=== PATIENT | male | born 2000 | race Two or more races ===

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

== ENCOUNTER 2019-06-09 11:53 | Emergency (ER) | payer BC ==
--- NOTE | 2019-06-09 11:55 | EDM.PDOC ---
ED HPI GENERAL MEDICAL PROBLEM - General Chief Complaint: Chest Pain Stated Complaint: PT FELL AND HIT HEAD, CHEST PAIN Time Seen by Provider: 06/09/19 11:55 Source of Information: Reports: Patient - History of Present Illness INITIAL COMMENTS - FREE TEXT/NARRATIVE: HISTORY AND PHYSICAL: History of present illness: [Patient was intoxicated last night he states he fell down a flight of 20 stairs last night at 3 AM, he has obvious left eye contusion and complains of left rib and left upper quadrant pain no fever nausea vomiting chills sweats no chest pain shortness breath headache dizziness palpitation no bowel or urine symptoms] Review of systems: As per history of present illness and below otherwise all systems reviewed and negative. Past medical history: As per history of present illness and as reviewed below otherwise noncontributory. Surgical history: As per history of present illness and as reviewed below otherwise noncontributory. Social history: No reported history of drug or alcohol abuse. Family history: As per history of present illness and as reviewed below otherwise noncontributory. Physical exam: HEENT: Atraumatic, normocephalic, pupils reactive, negative for conjunctival pallor or scleral icterus, mucous membranes moist, throat clear, neck supple, nontender, trachea midline. Left raccoon 9 noted Lungs: Clear to auscultation, breath sounds equal bilaterally, chest nontender. Heart: S1S2, regular, negative for clicks, rubs, or JVD. Abdomen: Soft, nondistended, nontender. Negative for masses or hepatosplenomegaly. Negative for costovertebral tenderness. Pelvis: Stable nontender. Genitourinary: Deferred. Rectal: Deferred. Extremities: Atraumatic, negative for cords or calf pain. Neurovascular unremarkable. Neuro: Awake, alert, oriented. Cranial nerves II through XII unremarkable. Cerebellum unremarkable. Motor and sensory unremarkable throughout. Exam nonfocal. Diagnostics: Head and cervical spine CT no contrast Chest abdomen pelvis with contrast EKG ] CBC CMP UA etoh Therapeutics: [Rest ice ibuprofen ] Impression: [Contusion left eye Fall Medical screening exam] Definitive disposition and diagnosis as appropriate pending reevaluation and review of above. Chest Pain Score (Numeric/FACES): 3 - Related Data Allergies Allergy/AdvReac Type Severity Reaction Status Date / Time No Known Allergies Allergy Verified 06/09/19 12:27 Home Meds: Home Meds . [No Known Home Meds] 12/15/17 [History] Past Medical History - Past Health History Medical/Surgical History: Denies Medical/Surgical History Cardiovascular History: Reports: Other (See Below) Other Cardiovascular History: pericarditis Respiratory History: Reports: None Gastrointestinal History: Reports: None Genitourinary History: Reports: None Musculoskeletal History: Reports: None Neurological History: Reports: None Psychiatric History: Reports: ADHD, Anxiety Endocrine/Metabolic History: Reports: None Hematologic History: Reports: None Immunologic History: Reports: None Oncologic (Cancer) History: Reports: None Dermatologic History: Reports: None - Infectious Disease History Infectious Disease History: Reports: None - Past Surgical History HEENT Surgical History: Reports: Eye Surgery Social & Family History - Family History Family Medical History: Noncontributory ED ROS GENERAL - Review of Systems Review Of Systems: See Below ED EXAM, GENERAL - Physical Exam Exam: See Below Course - Vital Signs Last Recorded V/S: Last Vital Signs Temp 97.8 F 06/09/19 11:58 Pulse 116 H 06/09/19 11:58 Resp 14 06/09/19 11:58 BP 143/84 H 06/09/19 11:58 Pulse Ox 98 06/09/19 11:58 - Orders/Labs/Meds Orders: Active Orders 24 hr Category Date Time Status Admission Status [Patient Status] [ADT] Stat ADT 06/09/19 13:03 Active EKG Documentation Completion [RC] STAT Care 06/09/19 11:55 Active Vaccines to be Administered [RC] PER UNIT ROUTINE Care 06/09/19 12:02 Active UA RFX LAURA AND CULT IF INDIC [URIN] Stat Lab 06/09/19 12:03 Ordered Labs: Laboratory Tests 06/09/19 06/09/19 Range/Units 12:03 12:03 WBC 15.93 H (4.0-11.0) K/uL RBC 5.72 (4.50-5.90) M/uL Hgb 15.5 (13.0-17.0) g/dL Hct 47.1 (38.0-50.0) % MCV 82.3 (80.0-98.0) fL MCH 27.1 (27.0-32.0) pg MCHC 32.9 (31.0-37.0) g/dL RDW Std Deviation 42.8 (28.0-62.0) fl RDW Coeff of Misti 14 (11.0-15.0) % Plt Count 232 (150-400) K/uL MPV 12.10 H (7.40-12.00) fL Neut % (Auto) 76.9 (48.0-80.0) % Lymph % (Auto) 16.9 (16.0-40.0) % [place] % (Auto) 6.0 (0.0-15.0) % Eos % (Auto) 0.0 (0.0-7.0) % Baso % (Auto) 0.2 (0.0-1.5) % Neut # (Auto) 12.3 H (1.4-5.7) K/uL Lymph # (Auto) 2.7 H (0.6-2.4) K/uL [place] # (Auto) 1.0 H (0.0-0.8) K/uL Eos # (Auto) 0.0 (0.0-0.7) K/uL Baso # (Auto) 0.0 (0.0-0.1) K/uL Nucleated RBC % 0.0 /100WBC Nucleated RBCs # 0 K/uL Sodium 142 (136-148) mmol/L Potassium 3.2 L (3.5-5.1) mmol/L Chloride 103 (98-107) mmol/L Carbon Dioxide 22.3 (21.0-32.0) mmol/L BUN 10 (7.0-18.0) mg/dL Creatinine 1.0 (0.8-1.3) mg/dL Est Cr Clr Drug Dosing 121.67 mL/min Estimated GFR (MDRD) > 60.0 ml/min Glucose 93 (74-106) mg/dL Calcium 10.0 (8.5-10.1) mg/dL Total Bilirubin 0.5 (0.2-1.0) mg/dL AST 17 (15-37) IU/L ALT 22 (14-63) IU/L Alkaline Phosphatase 136 H (46-116) U/L Total Protein 8.2 (6.4-8.2) g/dL Albumin 4.6 (3.4-5.0) g/dL Globulin 3.6 (2.6-4.0) g/dL Albumin/Globulin Ratio 1.3 (0.9-1.6) Ethyl Alcohol 36 mg/dL Meds: Medications Discontinued Medications Generic Name Dose Route Start Last Admin Trade Name Lou PRN Reason Stop Dose Admin Diphtheria/Tetanus/Acell Pertussis 0.5 ml 06/09/19 12:02 06/09/19 12:53 Adacel IM 06/09/19 12:03 0.5 ml .ONCE ONE Administration Iopamidol 100 ml 06/09/19 12:22 06/09/19 12:24 Isovue-370 (76%) IVPUSH 06/09/19 12:23 100 ml ONETIME STA Administration Departure - Departure Time of Disposition: 13:19 Disposition: Home, Self-Care 01 Condition: Good Clinical Impression: Contusion - Discharge Information Forms: ED Department Discharge Additional Instructions: The following information is given to patients seen in the emergency department who are being discharged to home. This information is to outline your options for follow-up care. We provide all patients seen in our emergency department with a follow-up referral. The need for follow-up, as well as the timing and circumstances, are variable depending upon the specifics of your emergency department visit. If you don't have a primary care physician on staff, we will provide you with a referral. We always advise you to contact your personal physician following an emergency department visit to inform them of the circumstance of the visit and for follow-up with them and/or the need for any referrals to a consulting specialist. The emergency department will also refer you to a specialist when appropriate. This referral assures that you have the opportunity for follow-up care with a specialist. All of these measure are taken in an effort to provide you with optimal care, which includes your follow-up. Under all circumstances we always encourage you to contact your private physician who remains a resource for coordinating your care. When calling for follow-up care, please make the office aware that this follow-up is from your recent emergency room visit. If for any reason you are refused follow-up, please contact the [facility] emergency department at and asked to speak to the emergency department charge nurse. - My Orders Last 24 Hours: My Active Orders 06/09/19 11:55 EKG Documentation Completion [RC] STAT 06/09/19 12:02 Vaccines to be Administered [RC] PER UNIT ROUTINE 06/09/19 12:03 UA RFX LAURA AND CULT IF INDIC [URIN] Stat 06/09/19 13:03 Admission Status [Patient Status] [ADT] Stat - Assessment/Plan Last 24 Hours: My Active Orders 06/09/19 11:55 EKG Documentation Completion [RC] STAT 06/09/19 12:02 Vaccines to be Administered [RC] PER UNIT ROUTINE 06/09/19 12:03 UA RFX LAURA AND CULT IF INDIC [URIN] Stat 06/09/19 13:03 Admission Status [Patient Status] [ADT] Stat
[2019-06-09] MEDS ORDERED: Diphtheria,Pertussis(Acell),Tetanus Vaccine 0.5 ML Syringe IM ONE (12:02)
[2019-06-09] MEDS ORDERED: Iopamidol 755 Mg/ML 100 ML Bottle IVPUSH STA (12:22)
[2019-06-09 12:39] LABS: BLOOD UREA NITROGEN,BUN 10 mg/dL (7.0-18.0); CARBON DIOXIDE,CO2 22.3 mmol/L (21.0-32.0); CHLORIDE,CL 103 mmol/L (98-107); GLUCOSE RANDOM 93 mg/dL (74-106); POTASSIUM,K 3.2 mmol/L (3.5-5.1); SODIUM,NA 142 mmol/L (136-148)
--- NOTE | 2019-06-09 12:47 | CT ---
EXAMINATION: Non contrast CT head. Coronal and sagittal reformats. HISTORY: Pain FINDINGS: No evidence of intra or extra axial hemorrhage, mass, midline shift, hydrocephalus or edema. No hypoattenuation changes in the major vascular territories to suggest acute infarct. No abnormal intracranial calcifications are detected. No evidence of substantial vascular calcifications. Paranasal sinuses and mastoid air cells are well aerated without substantial findings. Pituitary fossa appears unremarkable. Orbits and globes are symmetric. Calvarium is intact. No evidence of skull fracture. IMPRESSION: No acute intracranial findings.
--- NOTE | 2019-06-09 12:49 | CT ---
EXAMINATION: CT cervical spine HISTORY: Pain COMPARISON: None TECHNIQUE: Axial CT imaging obtained through the cervical spine without contrast. Coronal and sagittal reconstructions obtained. FINDINGS: The cervical spinal alignment is normal. Vertebral body heights and disc spaces appear well-maintained. There is no fracture or acute osseous abnormality. Bone mineralization and joint spaces are preserved. Paravertebral soft tissues appear normal. Lung apices are clear. IMPRESSION: 1. No acute cervical abnormality.
--- NOTE | 2019-06-09 12:54 | CT ---
CT of the chest, abdomen and pelvis with contrast. HISTORY: Pain TECHNIQUE: Axial CT images were obtained of the chest, abdomen and pelvis following administration of 100 mL of Isovue-370 in the right antecubital fossa without complication. Coronal and sagittal reconstructions obtained. FINDINGS: Chest: The lungs are clear without focal consolidation. No pleural effusion or pneumothorax. The heart is normal in size without a pericardial effusion. Thoracic aorta is normal in caliber. The main and central pulmonary arteries appear patent. Central airways are clear. No mediastinal, hilar, or axillary lymphadenopathy. Abdomen: The liver, spleen, adrenal glands, and pancreas appear normal. The gallbladder is normal. There is no bulky retroperitoneal lymphadenopathy or abdominal ascites. The kidneys enhance and function symmetrically without evidence of obstructive uropathy. Pelvis: The large and small bowel are normal in caliber without evidence of obstruction. No focal pericolonic inflammation or stranding. The appendix is normal. No bulky pelvic lymphadenopathy or free pelvic fluid. Urinary bladder is minimally filled. No suspicious osseous abnormalities identified. IMPRESSION: 1. No acute findings noted within the chest, abdomen, or pelvis.
[2019-06-09 17:17] VITALS: BP 134/75; PULSE 95
== END 2019-06-09 13:35 | disposition home or self-care (01) ==
LOC: MW.ED 11:53
DX: S05.12XA Contusion of eyeball and orbital tissues, left eye, initial encounter (principal); R10.12 Left upper quadrant pain; R07.81 Pleurodynia; Z23 Encounter for immunization; W10.8XXA Fall (on) (from) other stairs and steps, initial encounter
CPT/HCPCS: 36415; 70450; 71260; 72125; 74177; 80053; 81003; 85025; 90471; 90715; 93005; 99285; G0480; Q9967; 99284

== ENCOUNTER 2020-06-26 18:22 | Emergency (ER) | payer BC, OTHER ==
[2020-06-26] MEDS ORDERED: Acetaminophen 500 MG Tab PO ONE (18:33)
[2020-06-26] MEDS ORDERED: Ibuprofen 600 MG Tab PO ONE (18:35)
--- NOTE | 2020-06-26 18:39 | EDM.PDOC ---
<Huseyin Esquivel - Last Filed: 06/27/20 01:30> ED HPI GENERAL MEDICAL PROBLEM - General Chief Complaint: Chest Pain Stated Complaint: CHEST PAIN,TROUBLE BREATHING Time Seen by Provider: 06/26/20 18:28 - Related Data Allergies Allergy/AdvReac Type Severity Reaction Status Date / Time No Known Allergies Allergy Verified 06/26/20 18:28 Home Meds: Home Meds . [No Known Home Meds] 12/15/17 [History] Course - Vital Signs Text/Narrative:: Troponin negative, remainder the labs are largely unremarkable, chest x-ray was clear, stable vital signs, no acute distress. Patient states he feels better after getting Tylenol and Motrin. COVID swab was sent off. Encouraged the patient to isolate himself at home until results are known and that he would be notified about the results of the test. Patient understands this plan, is agreeable with it, has a reassuring work-up here, no indication for admission or further work-up at this time. Return precautions provided otherwise he was stable at discharge. Departure - Departure Time of Disposition: 19:50 Disposition: Home, Self-Care 01 Condition: Good Clinical Impression: Atypical chest pain - Discharge Information Instructions: Chest Wall Pain, [id number] Referrals: PCP,None [Primary Care Provider] - Forms: ED Department Discharge Additional Instructions: Follow-up with your primary care doctor. Use [id number] pain medicine as needed and directed for pain control. Return to the ED with any new or worsening symptoms. Isolate yourself at home until the results of the covid test are known. The following information is given to patients seen in the emergency department who are being discharged to home. This information is to outline your options for follow-up care. We provide all patients seen in our emergency department with a follow-up referral. The need for follow-up, as well as the timing and circumstances, are variable depending upon the specifics of your emergency department visit. If you don't have a primary care physician on staff, we will provide you with a referral. We always advise you to contact your personal physician following an emergency department visit to inform them of the circumstance of the visit and for follow-up with them and/or the need for any referrals to a consulting specialist. The emergency department will also refer you to a specialist when appropriate. This referral assures that you have the opportunity for follow-up care with a specialist. All of these measure are taken in an effort to provide you with optimal care, which includes your follow-up. Under all circumstances we always encourage you to contact your private physician who remains a resource for coordinating your care. When calling for follow-up care, please make the office aware that this follow-up is from your recent emergency room visit. If for any reason you are refused follow-up, please contact the [facility] Emergency Department at and asked to speak to the emergency department charge nurse. <Gavin Garcia - Last Filed: 06/27/20 06:58> ED HPI GENERAL MEDICAL PROBLEM - General Source of Information: Reports: Patient History Limitations: Reports: No Limitations - History of Present Illness INITIAL COMMENTS - FREE TEXT/NARRATIVE: 20M PMHx pericarditis presents for chest pain and subjective fever. Noted the past couple of days feeling subjectively febrile with body aches, chills, sweats. Has had nausea without vomiting. Notes cramping to b/l legs. Notes generalized weakness. Today was playing basketball and noted anterior chest tightness and shortness of breath. No known sick contacts. Chest pain feels kind of like when he has had pericarditis. Chest Pain Score (Numeric/FACES): 3 Past Medical History - Past Health History Medical/Surgical History: Denies Medical/Surgical History Cardiovascular History: Reports: Other (See Below) Other Cardiovascular History: pericarditis Respiratory History: Reports: None Gastrointestinal History: Reports: None Genitourinary History: Reports: None Musculoskeletal History: Reports: None Neurological History: Reports: None Psychiatric History: Reports: ADHD, Anxiety Endocrine/Metabolic History: Reports: None Hematologic History: Reports: None Immunologic History: Reports: None Oncologic (Cancer) History: Reports: None Dermatologic History: Reports: None - Infectious Disease History Infectious Disease History: Reports: None - Past Surgical History Head Surgeries/Procedures: Reports: None HEENT Surgical History: Reports: Eye Surgery Social & Family History - Family History Family Medical History: Noncontributory - Caffeine Use Caffeine Use: Reports: Coffee - Recreational Drug Use Recreational Drug Use: No ED ROS GENERAL - Review of Systems Review Of Systems: Comprehensive ROS is negative, except as noted in HPI. ED EXAM, GENERAL - Physical Exam Exam: See Below Exam Limited By: No Limitations General Appearance: Alert, WD/WN, No Apparent Distress Head: Atraumatic, Normocephalic Respiratory/Chest: No Respiratory Distress, Lungs Clear, Normal Breath Sounds, No Accessory Muscle Use Cardiovascular: Normal Peripheral Pulses, Regular Rate, Rhythm, No Edema Extremities: Normal Inspection, Other (LE symmetric without warmth, erythema, or TTP) Neurological: Alert Psychiatric: Normal Affect, Normal Mood Skin Exam: Warm, Dry EKG INTERPRETATION EKG Date: 06/26/20 Time: 18:39 Rhythm: NSR Rate (Beats/Min): 76 [place]: Normal P-Wave: Present QRS: Normal ST-T: Other (benign early repolarization pattern) QT: Normal IA/PQ Interval: 156 Course - Vital Signs Last Recorded V/S: Last Vital Signs Temp 97.2 F 06/26/20 19:49 Pulse 82 06/26/20 19:49 Resp 18 06/26/20 19:49 BP 127/77 06/26/20 19:49 Pulse Ox 98 06/26/20 19:49 - Orders/Labs/Meds Orders: Active Orders 24 hr Category Date Time Status Discharge Patient [ADT] Routine ADT 06/26/20 19:39 Ordered Labs: Laboratory Tests 06/26/20 06/26/20 06/26/20 Range/Units 18:53 18:53 19:05 WBC 10.02 (4.0-11.0) K/uL RBC 5.47 (4.50-5.90) M/uL Hgb 14.7 (13.0-17.0) g/dL Hct 45.2 (38.0-50.0) % MCV 82.6 (80.0-98.0) fL MCH 26.9 L (27.0-32.0) pg MCHC 32.5 (31.0-37.0) g/dL RDW Std Deviation 42.6 (28.0-62.0) fl RDW Coeff of Misti 14 (11.0-15.0) % Plt Count 175 (150-400) K/uL MPV 12.10 H (7.40-12.00) fL Neut % (Auto) 69.3 (48.0-80.0) % Lymph % (Auto) 22.5 (16.0-40.0) % [place] % (Auto) 6.8 (0.0-15.0) % Eos % (Auto) 1.0 (0.0-7.0) % Baso % (Auto) 0.4 (0.0-1.5) % Neut # (Auto) 7.0 H (1.4-5.7) K/uL Lymph # (Auto) 2.3 (0.6-2.4) K/uL [place] # (Auto) 0.7 (0.0-0.8) K/uL Eos # (Auto) 0.1 (0.0-0.7) K/uL Baso # (Auto) 0.0 (0.0-0.1) K/uL Nucleated RBC % 0.0 /100WBC Nucleated RBCs # 0 K/uL Sodium 137 (136-148) mmol/L Potassium 3.3 L (3.5-5.1) mmol/L Chloride 101 (98-107) mmol/L Carbon Dioxide 25.3 (21.0-32.0) mmol/L BUN 15 (7.0-18.0) mg/dL Creatinine 1.1 (0.8-1.3) mg/dL Est Cr Clr Drug Dosing 109.68 mL/min Estimated GFR (MDRD) > 60.0 ml/min Glucose 130 H (74-106) mg/dL Calcium 8.6 (8.5-10.1) mg/dL Troponin I < 0.050 (0.000-0.056) ng/mL COVID-19 (JENNIFER) NEGATIVE (NEGATIVE) Meds: Medications Discontinued Medications Generic Name Dose Route Start Last Admin Trade Name Julio Cq PRN Reason Stop Dose Admin Acetaminophen 1,000 mg 06/26/20 18:33 06/26/20 19:07 Tylenol Extra Strength PO 06/26/20 18:34 1,000 mg ONETIME ONE Administration Ibuprofen 600 mg 06/26/20 18:35 06/26/20 19:07 Motrin PO 06/26/20 18:36 600 mg ONETIME ONE Administration - Re-Assessments/Exams Free Text/Narrative Re-Assessment/Exam: 06/26/20 18:37 Patient presents with multiple symptoms. EKG without acute findings. Will get CXR and basic labs. Will get COVID-19 testing. Will treat symptomatically with motrin/tylenol. Will transition care to night-team ED physician pending labs, imaging, and reassessment. 06/26/20 18:49 Wet read CXR negative for acute pathology Sepsis Event Note (ED) - Evaluation Sepsis Screening Result: No Definite Risk - Focused Exam Vital Signs: Vital Signs Temp Pulse Resp BP Pulse Ox 06/26/20 19:49 97.2 F 82 18 127/77 98
--- NOTE | 2020-06-26 19:00 | CR ---
Chest: Frontal view of the chest was obtained. Comparison: No prior chest imaging is available. Heart size and mediastinum are normal. Lungs are clear. Bony structures show nothing acute. Impression: 1. Nothing acute is seen on frontal chest x-ray. Diagnostic code #1 This report was dictated in MDT
[2020-06-26 19:25] LABS: BLOOD UREA NITROGEN,BUN 15 mg/dL (7.0-18.0); CARBON DIOXIDE,CO2 25.3 mmol/L (21.0-32.0); CHLORIDE,CL 101 mmol/L (98-107); GLUCOSE RANDOM 130 mg/dL (74-106); POTASSIUM,K 3.3 mmol/L (3.5-5.1); SODIUM,NA 137 mmol/L (136-148)
[2020-06-26 19:50] VITALS: BP 127/77; PULSE 82
== END 2020-06-26 19:50 | disposition home or self-care (01) ==
LOC: MW.ED 18:22
DX: R07.89 Other chest pain (principal); Z20.828 Contact with and (suspected) exposure to other viral communicable diseases
CPT/HCPCS: 36415; 71045; 80048; 84484; 85025; 87635; 93005; 99285; A9270; 99282; U0002

== ENCOUNTER 2020-07-02 21:23 | Emergency (ER) | payer BC, OTHER ==
[2020-07-02] MEDS ORDERED: Famotidine 20 MG/2 ML SDV IVPUSH ONE (22:00)
[2020-07-02] MEDS ORDERED: Sodium Chloride 0.9% 10 ML Syringe FLUSH PRN (22:00)
[2020-07-02] MEDS ORDERED: Sodium Chloride 0.9% 1,000 ML IV ONE (22:00)
[2020-07-02] MEDS ORDERED: Ondansetron 4 MG/2 ML SDV IVPUSH ONE (22:00)
[2020-07-02] MEDS ORDERED: Sodium Chloride 0.9% 2.5 ML Syringe FLUSH PRN (22:00)
--- NOTE | 2020-07-02 22:06 | EDM.PDOC ---
ED HPI GENERAL MEDICAL PROBLEM - General Chief Complaint: Abdominal Pain Stated Complaint: ABDOMINAL PAIN Time Seen by Provider: 07/02/20 21:35 Source of Information: Reports: Patient - History of Present Illness INITIAL COMMENTS - FREE TEXT/NARRATIVE: History of present illness: 20-year-old male presenting with diffuse abdominal pain, mostly in the upper abdominal/epigastric area and some in radiating to the back. He does report some chronic chest pain that he has daily and for which he has been seen many times in the emergency department but has never followed up outpatient and not currently having that at this time. No fever or chills. He does report some cough several days ago but no significant ongoing cough. Recently quit smoking 2 days ago. He does report that for his chronic chest pain he takes daily ibuprofen. He also reports that he had 2 shots of alcohol yesterday which is not normal for him. Review of systems: As per history of present illness and below otherwise all systems reviewed and negative. Past medical history: As per history of present illness and as reviewed below otherwise noncontributory. Surgical history: As per history of present illness and as reviewed below otherwise noncontributory. Eye surgery Social history: Quit cigarettes 2 weeks ago, occasional/rare alcohol use, occasional marijuana use Family history: As per history of present illness and as reviewed below otherwise noncontributory. Physical exam: GEN: no acute distress, well appearing HEENT: Atraumatic, normocephalic, mucous membranes moist, Neck: supple, nontender, trachea midline. Lungs: No respiratory distress. Heart: RRR Abdomen: Soft, nondistended, nontender. The patient has no reproducible tenderness in all 4 quadrants, epigastric area, or flank/CVA areas, no pulsatile mass. Back: nontender Extremities: Atraumatic. Neurovascularly intact. Neuro: Awake, alert, oriented. Neuro Exam nonfocal. Skin: warm, dry, no lesions Diagnostics: Labs, EKG, UA Therapeutics: IV fluids, Pepcid MDM: Impression: [] Plan: [] Definitive disposition and diagnosis as appropriate pending reevaluation and review of above. Generalized abdomen Pain Score (Numeric/FACES): 6 - Related Data Allergies Allergy/AdvReac Type Severity Reaction Status Date / Time No Known Allergies Allergy Verified 07/02/20 21:50 Home Meds: Home Meds Omeprazole 20 mg PO DAILY #30 tablet.dr 07/02/20 [Rx] Past Medical History - Past Health History Medical/Surgical History: Denies Medical/Surgical History Cardiovascular History: Reports: Other (See Below) Other Cardiovascular History: pericarditis Respiratory History: Reports: None Gastrointestinal History: Reports: None Genitourinary History: Reports: None Musculoskeletal History: Reports: None Neurological History: Reports: None Psychiatric History: Reports: ADHD, Anxiety Endocrine/Metabolic History: Reports: None Hematologic History: Reports: None Immunologic History: Reports: None Oncologic (Cancer) History: Reports: None Dermatologic History: Reports: None - Infectious Disease History Infectious Disease History: Reports: None - Past Surgical History Head Surgeries/Procedures: Reports: None HEENT Surgical History: Reports: Eye Surgery Social & Family History - Family History Family Medical History: Noncontributory - Caffeine Use Caffeine Use: Reports: Coffee - Recreational Drug Use Recreational Drug Type: Reports: Marijuana/Hashish ED ROS GENERAL - Review of Systems Review Of Systems: See Below (See HPI) ED EXAM, GI/ABD - Physical Exam Exam: See Below (See HPI) EKG INTERPRETATION EKG Interpretation Comments: EKG performed at 10:08 PM, sinus rhythm, rate 54, QTc 384, no acute ischemia, no STEMI. Independently interpreted by me. Course - Vital Signs Text/Narrative:: Abdominal pain and back pain. No significantly abnormal physical exam findings. In particular no pulsatile mass, no right upper quadrant tenderness, no right lower quadrant tenderness, no rebound or guarding, no fever, no respiratory distress or chest pain. Differential diagnosis includes pancreatitis, gastritis, gastric ulcer, nonspecific abdominal pain, etc. do not suspect cholecystitis, appendicitis, diverticulitis or other intra-abdominal infection Labs unremarkable, except for mildly elevated WBC count, lipase not elevated, patient feeling much better after Pepcid. EKG with no ischemia. Stable for discharge and outpatient follow-up. Last Recorded V/S: Last Vital Signs Temp 96.4 F L 07/02/20 21:36 Pulse 63 07/02/20 23:26 Resp 18 07/02/20 23:26 BP 115/69 07/02/20 23:26 Pulse Ox 98 07/02/20 23:26 - Orders/Labs/Meds Orders: Active Orders 24 hr Category Date Time Status EKG Documentation Completion [RC] STAT Care 07/02/20 22:00 Active Sodium Chloride 0.9% [Saline Flush] Med 07/02/20 22:00 Active 10 ml FLUSH ASDIRECTED PRN Sodium Chloride 0.9% [Saline Flush] Med 07/02/20 22:00 Active 2.5 ml FLUSH ASDIRECTED PRN Saline Lock Insert [OM.PC] Stat Oth 07/02/20 22:00 Ordered Medication Orders Sodium Chloride (Saline Flush) 10 ml FLUSH ASDIRECTED PRN PRN Reason: Keep Vein Open Sodium Chloride (Saline Flush) 2.5 ml FLUSH ASDIRECTED PRN PRN Reason: Keep Vein Open Labs: Laboratory Tests 07/02/20 07/02/20 07/02/20 Range/Units 22:00 22:00 22:00 WBC 11.48 H (4.0-11.0) K/uL RBC 5.69 (4.50-5.90) M/uL Hgb 15.1 (13.0-17.0) g/dL Hct 46.9 (38.0-50.0) % MCV 82.4 (80.0-98.0) fL MCH 26.5 L (27.0-32.0) pg MCHC 32.2 (31.0-37.0) g/dL RDW Std Deviation 42.0 (28.0-62.0) fl RDW Coeff of Misti 14 (11.0-15.0) % Plt Count 208 (150-400) K/uL MPV 12.20 H (7.40-12.00) fL Neut % (Auto) 64.3 (48.0-80.0) % Lymph % (Auto) 26.7 (16.0-40.0) % [place] % (Auto) 7.8 (0.0-15.0) % Eos % (Auto) 0.7 (0.0-7.0) % Baso % (Auto) 0.5 (0.0-1.5) % Neut # (Auto) 7.4 H (1.4-5.7) K/uL Lymph # (Auto) 3.1 H (0.6-2.4) K/uL [place] # (Auto) 0.9 H (0.0-0.8) K/uL Eos # (Auto) 0.1 (0.0-0.7) K/uL Baso # (Auto) 0.1 (0.0-0.1) K/uL Nucleated RBC % 0.0 /100WBC Nucleated RBCs # 0 K/uL Sodium 141 (136-148) mmol/L Potassium 3.7 (3.5-5.1) mmol/L Chloride 107 (98-107) mmol/L Carbon Dioxide 21.8 (21.0-32.0) mmol/L BUN 12 (7.0-18.0) mg/dL Creatinine 1.2 (0.8-1.3) mg/dL Est Cr Clr Drug Dosing 100.54 mL/min Estimated GFR (MDRD) > 60.0 ml/min Glucose 97 (74-106) mg/dL Calcium 9.0 (8.5-10.1) mg/dL Total Bilirubin 0.3 (0.2-1.0) mg/dL AST 16 (15-37) IU/L ALT 22 (14-63) IU/L Alkaline Phosphatase 131 H (46-116) U/L Total Protein 7.8 (6.4-8.2) g/dL Albumin 4.6 (3.4-5.0) g/dL Globulin 3.2 (2.6-4.0) g/dL Albumin/Globulin Ratio 1.4 (0.9-1.6) Lipase 145 (73-393) U/L Urine Color YELLOW Urine Appearance CLEAR Urine pH 5.5 (5.0-8.0) Ur Specific [place] >= 1.030 (1.001-1.035) Urine Protein NEGATIVE (NEGATIVE) mg/dL Urine Glucose (UA) NEGATIVE (NEGATIVE) mg/dL Urine Ketones NEGATIVE (NEGATIVE) mg/dL Urine Occult Blood NEGATIVE (NEGATIVE) Urine Nitrite NEGATIVE (NEGATIVE) Urine Bilirubin NEGATIVE (NEGATIVE) Urine Urobilinogen 0.2 (<2.0) EU/dL Ur Leukocyte Esterase NEGATIVE (NEGATIVE) Meds: Medications Generic Name Dose Route Start Last Admin Trade Name Freq PRN Reason Stop Dose Admin Sodium Chloride 10 ml 07/02/20 22:00 Saline Flush FLUSH ASDIRECTED PRN Keep Vein Open Sodium Chloride 2.5 ml 07/02/20 22:00 Saline Flush FLUSH ASDIRECTED PRN Keep Vein Open Discontinued Medications Generic Name Dose Route Start Last Admin Trade Name Freq PRN Reason Stop Dose Admin Famotidine 20 mg 07/02/20 22:00 07/02/20 22:27 Pepcid IVPUSH 07/02/20 22:01 20 mg ONETIME ONE Administration Sodium Chloride 1,000 mls @ 999 mls/hr 07/02/20 22:00 07/02/20 22:26 Normal Saline IV 07/02/20 23:00 999 mls/hr .Bolus ONE Administration Ondansetron HCl 4 mg 07/02/20 22:00 07/02/20 22:27 Zofran IVPUSH 07/02/20 22:01 4 mg ONETIME ONE Administration - Re-Assessments/Exams Free Text/Narrative Re-Assessment/Exam: 07/02/20 23:42 Patient pain-free at this time after Pepcid. Discussed results and plan of care with the patient. Discussed plan for outpatient primary care follow-up. Will start the patient on PPI. Departure - Departure Time of Disposition: 23:42 Disposition: Home, Self-Care 01 Clinical Impression: Chest pain Abdominal pain Qualifiers: Abdominal location: generalized Qualified Code(s): R10.84 - Generalized abdominal pain - Discharge Information Prescriptions: Omeprazole 20 mg PO DAILY #30 tablet.dr Instructions: Gastritis, Adult, [id number], Abdominal Pain, Adult, [id number], Nonspecific Chest Pain, Adult, [id number] Referrals: PCP,None [Primary Care Provider] - Forms: ED Department Discharge Additional Instructions: Follow-up with the primary care clinic listed below. Please start the omeprazole and do a 2-week course. Avoid any alcohol. Avoid ibuprofen and take only Tylenol as needed for pain. Return to the emergency department for new or worsening pain. The following information is given to patients seen in the emergency department who are being discharged to home. This information is to outline your options for follow-up care. We provide all patients seen in our emergency department with a follow-up referral. The need for follow-up, as well as the timing and circumstances, are variable depending upon the specifics of your emergency department visit. If you don't have a primary care physician on staff, we will provide you with a referral. We always advise you to contact your personal physician following an emergency department visit to inform them of the circumstance of the visit and for follow-up with them and/or the need for any referrals to a consulting specialist. The emergency department will also refer you to a specialist when appropriate. This referral assures that you have the opportunity for follow-up care with a specialist. All of these measure are taken in an effort to provide you with optimal care, which includes your follow-up. Under all circumstances we always encourage you to contact your private physician who remains a resource for coordinating your care. When calling for follow-up care, please make the office aware that this follow-up is from your recent emergency room visit. If for any reason you are refused follow-up, please contact the [facility] Emergency Department at and asked to speak to the emergency department charge nurse. [facility] [address] [place] [id number] [facility] [address] [place] [id number] Sepsis Event Note (ED) - Evaluation Sepsis Screening Result: No Definite Risk - Focused Exam Vital Signs: Vital Signs Temp Pulse Resp BP Pulse Ox 07/02/20 23:26 63 18 115/69 98 07/02/20 22:34 70 18 119/60 99 07/02/20 21:36 96.4 F L 73 20 144/86 H 96 - My Orders Last 24 Hours: My Active Orders 07/02/20 22:00 EKG Documentation Completion [RC] STAT Sodium Chloride 0.9% [Saline Flush] 10 ml FLUSH ASDIRECTED PRN Sodium Chloride 0.9% [Saline Flush] 2.5 ml FLUSH ASDIRECTED PRN Saline Lock Insert [OM.PC] Stat - Assessment/Plan Last 24 Hours: My Active Orders 07/02/20 22:00 EKG Documentation Completion [RC] STAT Sodium Chloride 0.9% [Saline Flush] 10 ml FLUSH ASDIRECTED PRN Sodium Chloride 0.9% [Saline Flush] 2.5 ml FLUSH ASDIRECTED PRN Saline Lock Insert [OM.PC] Stat
[2020-07-02 22:35] LABS: BLOOD UREA NITROGEN,BUN 12 mg/dL (7.0-18.0); CARBON DIOXIDE,CO2 21.8 mmol/L (21.0-32.0); CHLORIDE,CL 107 mmol/L (98-107); GLUCOSE RANDOM 97 mg/dL (74-106); LIPASE 145 U/L (73-393); POTASSIUM,K 3.7 mmol/L (3.5-5.1); SODIUM,NA 141 mmol/L (136-148)
[2020-07-03 00:15] VITALS: BP 117/60; PULSE 85
== END 2020-07-02 23:46 | disposition home or self-care (01) ==
LOC: MW.ED 21:23
DX: R10.84 Generalized abdominal pain (principal); R07.9 Chest pain, unspecified; Z79.899 Other long term (current) drug therapy
CPT/HCPCS: 36415; 80053; 81003; 83690; 85025; 93005; 96361; 96374; 96375; 99285; J2405; J3490; J7030; 99283

== ENCOUNTER 2020-07-29 19:59 | Emergency (ER) | payer BC ==
--- NOTE | 2020-07-29 20:09 | EDM.PDOC ---
ED HPI GENERAL MEDICAL PROBLEM - General Chief Complaint: Chest Pain Stated Complaint: CHEST PAIN, HEART RACING Time Seen by Provider: 07/29/20 20:05 Source of Information: Reports: Patient, Old Records - History of Present Illness INITIAL COMMENTS - FREE TEXT/NARRATIVE: 20-year-old male with a past medical history of pericarditis and GERD presenting with chest discomfort and palpitations. He reports a 1 day history of left- sided chest pain started around 8:00 this morning. Pain is intermittent, described as "pressure". At times he is totally pain-free. Episodes last for about 1 hour at a time. This current episode has been going on for about an hour. Nothing makes it better or worse, not changed with breathing or food intake. Denies any pleuritic type change in the pain. Denies any shortness of breath. He does report some intermittent nausea and palpitations but no diaphoresis or actual vomiting. No family history of premature CAD. No personal history of hypertension, hyperlipidemia, tobacco use, or diabetes mellitus. Denies recent fever or cough. No recent vomiting. No recent chest wall trauma. Patient denies history of venous thromboembolism, lower extremity pain or swelling, hemoptysis, recent surgery or immobilization or long travel, history of active malignancy, or hormonal medication/product usage. ROS: A 10-point review of systems was negative, except as noted in the HPI (or in the ROS section of this note). Past medical history: Reviewed, no additional pertinent history. Surgical history: Reviewed in system, no additional pertinent history. Social history: Reviewed in system, no additional pertinent history. Family history: Reviewed in system, no additional pertinent history. PHYSICAL EXAM Vital signs reviewed. Nursing notes reviewed. Constitutional: Awake, alert, non-distressed. Head: Normocephalic, atraumatic. Eyes: EOMI, conjunctiva normal, no discharge, no scleral icterus. Ears, Nose, Throat: External ears and nose normal, moist oral mucosa. Cardiovascular: 2+ radial pulse, capillary refill less than 2 seconds. RRR no MRG. No lower extremity edema. Pulmonary: normal work of breathing, no accessory muscle use. CTA BL. Abdomen/GI: Soft, nontender, nondistended, no guarding or rigidity, no masses. Musculoskeletal: No deformities. Integumentary: Appropriate color for ethnicity, warm, dry, no pallor or jaundice, no rash. Neurologic: Alert, answering questions appropriately, normal speech, no facial droop, moving all extremities well. No resting tremor. Psychiatric: Appropriate mood and affect, normal thought process. chest Pain Score (Numeric/FACES): 4 - Related Data Allergies Allergy/AdvReac Type Severity Reaction Status Date / Time No Known Allergies Allergy Verified 07/29/20 20:17 Home Meds: Home Meds . [No Known Home Meds] 07/29/20 [History] Past Medical History - Past Health History Medical/Surgical History: Denies Medical/Surgical History Cardiovascular History: Reports: Other (See Below) Other Cardiovascular History: pericarditis Respiratory History: Reports: None Gastrointestinal History: Reports: None Genitourinary History: Reports: None Musculoskeletal History: Reports: None Neurological History: Reports: None Psychiatric History: Reports: ADHD, Anxiety Endocrine/Metabolic History: Reports: None Hematologic History: Reports: None Immunologic History: Reports: None Oncologic (Cancer) History: Reports: None Dermatologic History: Reports: None - Infectious Disease History Infectious Disease History: Reports: None - Past Surgical History Head Surgeries/Procedures: Reports: None HEENT Surgical History: Reports: Eye Surgery Social & Family History - Family History Family Medical History: Noncontributory - Caffeine Use Caffeine Use: Reports: Coffee ED ROS GENERAL - Review of Systems Review Of Systems: See Below ED EXAM, GENERAL - Physical Exam Exam: See Below EKG INTERPRETATION EKG Interpretation Comments: 12-Lead ECG Interpretation Acquired: 8:25 PM Rhythm: Sinus rhythm Rate: 90 bpm [place]: Normal, borderline right axis deviation Intervals: Normal Ectopy: None Ischemic Changes: None apparent RV Strain: No obvious RV strain pattern. ST Segments/T-Waves: No notable changes Interpretation: Unremarkable Course - Vital Signs Text/Narrative:: 20-year-old male with 1 day history of intermittent chest pain and palpitations. Patient hemodynamically stable, afebrile, well-appearing, looks nontoxic. Differential diagnosis includes but is not limited to: ACS, pulmonary embolism, aortic dissection, acute systolic heart failure, pneumonia, pneumothorax, pericardial effusion, pleural effusion, pericarditis, endocarditis, esophageal rupture, GERD, drug-induced chest pain, chest wall pain, and many others. CBC shows normal cell lines. Electrolytes and renal function reassuring. Troponin testing negative. TSH within normal limits. Two-view chest x-ray series clear. Given 1 L of lactated Ringer's and full dose aspirin. Initial work-up is negative, but I recommended a repeat 3-hour troponin and ECG given that the patient's current episode of pain has only been going on for 1 to 2 hours. Patient was initially agreeable to staying to finish his work-up. However, he then advised nursing staff that he needed to leave the emergency department and was willing to sign out AGAINST MEDICAL ADVICE because he had to go home to deal with a crisis. I went to the room to evaluate him and told him that his work-up was not finished. I advised that he had pending lab work and we would potentially be missing a myocardial infarction, and that by leaving prior to the completion of his work-up he risks incomplete diagnostic picture and possible morbidity or even . He understands and accepts these risks. He signed the hospital AGAINST MEDICAL ADVICE discharge form witnessed by myself and the registered nurse. He was advised to come back to the emergency department immediately if symptoms worsened or if he just changed his mind. Disposition: Left AGAINST MEDICAL ADVICE Last Recorded V/S: Last Vital Signs Temp 36.1 C 07/29/20 20:07 Pulse 106 H 07/29/20 20:07 Resp 17 07/29/20 20:07 BP 142/89 H 07/29/20 20:07 Pulse Ox 96 07/29/20 20:07 - Orders/Labs/Meds Labs: Laboratory Tests 07/29/20 07/29/20 Range/Units 20:25 20:25 WBC 8.63 (4.0-11.0) K/uL RBC 6.01 H (4.50-5.90) M/uL Hgb 16.2 (13.0-17.0) g/dL Hct 49.0 (38.0-50.0) % MCV 81.5 (80.0-98.0) fL MCH 27.0 (27.0-32.0) pg MCHC 33.1 (31.0-37.0) g/dL RDW Std Deviation 41.1 (28.0-62.0) fl RDW Coeff of Misti 14 (11.0-15.0) % Plt Count 212 (150-400) K/uL MPV 12.20 H (7.40-12.00) fL Neut % (Auto) 62.7 (48.0-80.0) % Lymph % (Auto) 27.1 (16.0-40.0) % [place] % (Auto) 9.0 (0.0-15.0) % Eos % (Auto) 0.6 (0.0-7.0) % Baso % (Auto) 0.6 (0.0-1.5) % Neut # (Auto) 5.4 (1.4-5.7) K/uL Lymph # (Auto) 2.3 (0.6-2.4) K/uL [place] # (Auto) 0.8 (0.0-0.8) K/uL Eos # (Auto) 0.1 (0.0-0.7) K/uL Baso # (Auto) 0.1 (0.0-0.1) K/uL Nucleated RBC % 0.0 /100WBC Nucleated RBCs # 0 K/uL Sodium 141 (136-148) mmol/L Potassium 4.1 (3.5-5.1) mmol/L Chloride 104 (98-107) mmol/L Carbon Dioxide 24.7 (21.0-32.0) mmol/L BUN 14 (7.0-18.0) mg/dL Creatinine 1.1 (0.8-1.3) mg/dL Est Cr Clr Drug Dosing 109.68 mL/min Estimated GFR (MDRD) > 60.0 ml/min Glucose 93 (74-106) mg/dL Calcium 9.6 (8.5-10.1) mg/dL Troponin I < 0.050 (0.000-0.056) ng/mL TSH 3rd Generation 1.92 (0.36-3.74) uIU/mL Meds: Medications Discontinued Medications Generic Name Dose Route Start Last Admin Trade Name Freq PRN Reason Stop Dose Admin Aspirin 324 mg 07/29/20 20:22 07/29/20 20:30 Aspirin PO 07/29/20 20:23 324 mg ONETIME ONE Administration Lactated Ringer's 1,000 mls @ 999 mls/hr 07/29/20 20:14 07/29/20 20:27 Ringers, Lactated IV 07/29/20 21:14 999 mls/hr .BOLUS ONE Administration Departure - Departure Time of Disposition: 22:22 Disposition: Against Medical Advice 07 Condition: Good Clinical Impression: Chest pain in adult, Left against medical advice Referrals: PCP,None [Primary Care Provider] - Forms: ED Department Discharge Sepsis Event Note (ED) - Focused Exam Vital Signs: Vital Signs Temp Pulse Resp BP Pulse Ox 07/29/20 20:07 36.1 C 106 H 17 142/89 H 96
[2020-07-29 20:13] VITALS: BP 142/89; PULSE 106
[2020-07-29] MEDS ORDERED: Lactated Ringers 1,000 ML IV ONE (20:14)
[2020-07-29] MEDS ORDERED: Aspirin 81 MG Tab.Chew PO ONE (20:22)
--- NOTE | 2020-07-29 20:51 | CR ---
Chest: 2 views of the chest were obtained. Comparison: Prior chest x-ray of 06/26/20. Heart size and mediastinum are normal. Lungs are clear with no acute parenchymal change. Bony structures appear within normal limits for the patient's age. Impression: 1. Nothing acute is seen on 2 view chest x-ray. Diagnostic code #1 This report was dictated in MDT
[2020-07-29 21:14] LABS: BLOOD UREA NITROGEN,BUN 14 mg/dL (7.0-18.0); CARBON DIOXIDE,CO2 24.7 mmol/L (21.0-32.0); CHLORIDE,CL 104 mmol/L (98-107); GLUCOSE RANDOM 93 mg/dL (74-106); POTASSIUM,K 4.1 mmol/L (3.5-5.1); SODIUM,NA 141 mmol/L (136-148)
== END 2020-07-29 22:24 | disposition left against medical advice (07) ==
LOC: MW.ED 19:59
DX: R07.89 Other chest pain (principal); R00.2 Palpitations
CPT/HCPCS: 36415; 71046; 80048; 84443; 84484; 85025; 93005; 96360; 99285; A9270; J7120; 99283